=== PATIENT | female | born 1950 | race Caucasian/White ===

== ENCOUNTER 2018-07-28 13:20 | Inpatient (IN) | payer MEDICARE ==
[~2018-07-28] VITALS: Ht 149.9 cm; Wt 48.1 kg
--- NOTE | 2018-07-28 13:30 | NUR ---
FROM [facility] - ON HOLD 5150. PT WAS FROM HOME WAS COMBATIV DAUGHTER. NAD NOTED, VSS, RESP EVEN AND UNLABORED, PT WAS PUT ON MONITOR AND HOSPITAL MD RACHEL AT BS.
--- NOTE | 2018-07-28 14:45 | NUR ---
ADMISSION NOTES PATIENT DIRECT ADMIT BROUGHT BY AMBULANCE FROM [facility] FEMALE 68Y/OLD ON 5250 HOLD, ON Dx OF PSYCHOSIS NOS. PATIENT A/O X2/3, REFUSED ANSWER QUESTIONS, REFUSED SIGN PAPERWORK, REFUSED FACE PICTURE TO BE TAKEN. PATIENT STATE " I DO NOT KNOW WHY I AM HEAR, SOMEBODY COMING TO PICK ME UP". V/S TAKEN BP-135/86, P-89, R-18, T-98, O2-94 ROOM AIR. PATIENT HAS NO ACUTE RESPIRATORY DISTRESS, NO SOB. PATIENT AMBULATORY SELF CARE, USING BATHROOM. ON FACE TO FACE ASSESSMENT PATIENT PASSIVE, LOSS MEMORY. SKIN ASSESSMENT DONE, SKIN INTACT. BELONGING AND CONTRABAND CHECKED. MRSA OF SWAB NARES TAKEN CALLED LAB FOR [facility]. FAMILY AWARE OF ADMISSION. DR HELMS, AND DR. JIANG AWARE OF NEW ADMISSION, AND MEDICATION. CONTINUED MONITORING.
[2018-07-28] MEDS ORDERED: ACETAMINOPHEN 325 MG TABLET PO PRN (15:00)
[2018-07-28] MEDS ORDERED: LORAZEPAM 0.5 MG TABLET PO PRN (15:00)
[2018-07-28] MEDS ORDERED: MAGNESIUM HYDROXIDE 30 ML UDC PO PRN (15:00)
[2018-07-28] MEDS ORDERED: MAG HYDROX/AL HYDROX/SIMETH 30 ML UDC PO PRN (15:00)
[2018-07-28 15:52] VITALS: BP 135/86
[2018-07-28] MEDS ORDERED: ALBUTEROL FS 2.5 MG/0.5 ML VIAL.NEB NEB PRN (19:30)
[2018-07-28 19:40] VITALS: BP 148/90
--- NOTE | 2018-07-28 19:53 | NUR ---
GPS RN NOTE, PATIENT IS TAKING Q-BRIANNA AT HOME BUT OUR PHARMACY DOES NOT CARRY IT. DR MIHAELA JIANG ON STATION AT PATIENT BEDSIDE. INFORMED DR MIHAELA JIANG OF MY FINDINGS. DR MIHAELA JIANG ORDERED TO GIVE ADVAIR 250 / 50 1 PUFF PO BID. ALL ORDERS NOTED AND CARRIED OUT WILL CONTINUE TO MONITOR THIS PATIENT.
[2018-07-28 20:00] VITALS: BP 148/90
[2018-07-28] MEDS: FLUTICASONE/VILANTEROL 1 EACH BLST.W.DEV IH SCH (21:59)
[2018-07-29] MEDS ORDERED: LOSA25TA13 PO (07:36)
[2018-07-29 07:58] LABS: ALBUMIN 3.5 g/dL (3.4-5.0); BILIRUBIN,DIRECT 0.1 mg/dL (0.0-0.2); BILIRUBIN,TOTAL 0.7 mg/dL (0.2-1.0); TOTAL PROTEIN, SERUM 6.7 g/dL (6.4-8.2)
[2018-07-29 08:00] VITALS: BP 109/73
[2018-07-29 08:05] LABS: CREATININE 0.7 mg/dL (0.6-1.3); POTASSIUM 3.8 mmol/L (3.5-5.1)
[2018-07-29] MEDS: FLUTICASONE/VILANTEROL 1 EACH BLST.W.DEV IH SCH (09:00)
--- NOTE | 2018-07-29 12:41 | NUR ---
SW called the pt's daughter, Chetna ([phone]), and discussed the process of conservatorship and how that is not viable for this pt. Then it was discussed the pt would be referred to long-term facilities in the [facility].
--- NOTE | 2018-07-29 12:41 | NUR ---
Initial Discharge Plan: Pt currently resides at [address] [place], [place] [id number]. Per psychiatrists recommendation, the pt should be placed in a facility before going home. Per pt, she would like to return home. MIKY will work with the pt, the pt's family, and the MD regarding appropriate discharge planning. SW will form a safe and proper plan.
--- NOTE | 2018-07-29 12:53 | NUR ---
MIKY called the pt's son, Kolby ([phone]), and left a voicemail asking for a call back to discuss the discharge plan.
--- NOTE | 2018-07-29 13:55 | NUR ---
SW called the pt's daughter, Chetna ([phone]), and informed her about the 14 day hold and the options for discharge. SW informed the daughter that the pt is refusing placement and wants to go home. Daughter said that would only be acceptable if there is a environmental sciences professor at home as well. SW informed her that she would send out referrals for [facility] facilities just in case.
--- NOTE | 2018-07-29 13:58 | NUR ---
MIKY called the pt's son, Kolby ([phone]), and informed him that the pt can be discharged before the 14 day hold is complete and also informed him that the SW would inform him about discharge when she knows when it will be set for.
[2018-07-29 16:00] VITALS: BP 131/79
[2018-07-29 20:23] VITALS: BP 141/61
[2018-07-29] MEDS: ZOLPIDEM TARTRATE 5 MG TABLET PO PRN ×2 (20:41→21:39)
--- NOTE | 2018-07-29 20:41 | NUR ---
AMBIEN 5 MG TAB 1 PO GIVEN FOR SLEEP. Addendum: 07/30/18 at 0129 by MONIKA JORGE RN NOTE CHARTED ABOVE: USER ERROR. PATIENT REFUSED HER AMBIEN 5 MG TAB.
[2018-07-29] MEDS ORDERED: DEXTROSE 50%-WATER 50 ML DISP.SYRIN IV PRN (21:00)
[2018-07-29] MEDS: QUETIAPINE FUMARATE 25 MG TABLET PO SCH (21:37)
[2018-07-29] MEDS: ATORVASTATIN 10 MG TABLET PO SCH (21:37)
[2018-07-29] MEDS: BLOOD SUGAR DIAGNOSTIC 1 EACH STRIP IN SCH (21:37)
[2018-07-30] MEDS: BLOOD SUGAR DIAGNOSTIC 1 EACH STRIP IN SCH ×4 (07:44→21:38)
[2018-07-30 08:00] VITALS: BP 152/100
[2018-07-30 08:06] LABS: CALCIUM, SERUM 9.6 mg/dL (8.5-10.1); CREATININE 0.9 mg/dL (0.6-1.3); MAGNESIUM 2.5 mg/dL (1.8-2.4); PHOSPHORUS 3.9 mg/dL (2.5-4.9)
[2018-07-30 08:11] LABS: BASOPHILS # (AUTO) 0.1 /CMM (0.0-0.2); BASOPHILS % (AUTO) 1.4 % (0.0-2.0); EOSINOPHILS % (AUTO) 2.4 % (0.0-6.0); HEMATOCRIT 47 % (33-45); HEMOGLOBIN 15.7 g/dL (11.5-14.8); LYMPHOCYTES # (AUTO) 1.5 /CMM (0.8-4.8); LYMPHOCYTES % (AUTO) 20.8 % (20.0-44.0); MEAN CORPUSCULAR HGB CONC 33 g/dl (31.0-36.0); MEAN CORPUSCULAR VOLUME 92 fL (82-100); MONOCYTES # (AUTO) 0.6 /CMM (0.1-1.30); MONOCYTES % (AUTO) 7.6 % (2.0-12.0); NEUTROPHILS # (AUTO) 4.9 /CMM (1.8-8.9); NEUTROPHILS % (AUTO) 67.8 % (43.0-81.0); PLATELET COUNT (AUTO) 291 /CMM (150-450); RDW COEFFICIENT OF VARIATION 13.5 (11.5-15.0); RED BLOOD CELL COUNT(AUTO) 5.08 MIL/uL (4.0-5.2); WHITE BLOOD COUNT (AUTO) 7.3 K/uL (4.3-11.0)
[2018-07-30] MEDS: FLUTICASONE/VILANTEROL 1 EACH BLST.W.DEV IH SCH (09:00)
--- NOTE | 2018-07-30 15:14 | NUR ---
MIKY called the pt's daughter, Chetna ([phone]), and discussed what the plan would be if the pt decided to leave against medical advice.
--- NOTE | 2018-07-30 15:35 | NUR ---
Pt's daughter, Chetna ([phone]), called the SW and inquired about the durable power of employment law attorney process.
--- NOTE | 2018-07-30 15:35 | NUR ---
MIKY sent a referral to [facility] with attention to Kasia at the fax number: [phone].
[2018-07-30 16:00] VITALS: BP 139/89
[2018-07-30 19:52] VITALS: BP 134/79
--- NOTE | 2018-07-30 19:52 | NUR ---
GPS/RN NOTES RECEIVED PATIENT IN BED, AWAKE , RESTING COMFORTABLY IN BED, NO S/S OF COMPLAINS OF PAIN AT THIS TIME. WITH NO S/S OF BEHAVIOR OUTBURST OR DISTRESS, RESPIRATIONS EVEN AND UNLABORED, SKIM WARM TO TOUCH. PATIENT ABLE TO TAKE MEDS, NO SUICIDAL IDEALATIONS AT THIS TIME. PATIENT BELONGINGS WITHIN REACH AND EDUCATED TO USE CALL LIGHTS, PATIENT BED SIDE RAILS UP 2X FOR SAFETY, BED IS LOCKED AND WILL CONTINUE TO MONITOR.
[2018-07-30 20:00] VITALS: BP 134/79
[2018-07-30] MEDS: QUETIAPINE FUMARATE 25 MG TABLET PO SCH (21:38)
[2018-07-30] MEDS: ATORVASTATIN 10 MG TABLET PO SCH (21:38)
--- NOTE | 2018-07-30 22:00 | NUR ---
GPS/RN NOTES PATIENT ASLEEP AND REFUSE TO TAKE MEDS, OFFERED AND PROVIDE RISK AND BENEFITS.
[2018-07-31] MEDS: BLOOD SUGAR DIAGNOSTIC 1 EACH STRIP IN SCH ×4 (07:30→21:28)
[2018-07-31 08:00] VITALS: BP 116/71
[2018-07-31] MEDS: FLUTICASONE/VILANTEROL 1 EACH BLST.W.DEV IH SCH (08:58)
[2018-07-31] MEDS: QUETIAPINE FUMARATE 25 MG TABLET PO SCH ×2 (10:19→21:28)
--- NOTE | 2018-07-31 13:06 | NUR ---
MIKY called the pt's daughter, Chetna ([phone]), and discussed the pt's discharge for the following day and then discussed setting her up with home care.
--- NOTE | 2018-07-31 13:26 | NUR ---
Pt contacted Nimco ([phone]) from [facility] and provided her with the pt's daughters phone number to set up the home care.
[2018-07-31 16:00] VITALS: BP 140/83
[2018-07-31 20:00] VITALS: BP 133/66
[2018-07-31] MEDS: ATORVASTATIN 10 MG TABLET PO SCH (21:28)
--- NOTE | 2018-07-31 22:00 | NUR ---
GPS NOTES NON ADMIN PT LIPITOR, SEROQUEL AND BLOOD SUGAR TEST PER PT SHE IS NOT SICK AND SHE IS NOT DIABETIC OFFERED 3 TIMES RISKS AND BENEFITS EXPLAINED STILL REFUSED.
[2018-08-01 08:00] VITALS: BP 120/73
[2018-08-01] MEDS: FLUTICASONE/VILANTEROL 1 EACH BLST.W.DEV IH SCH (09:00)
[2018-08-01] MEDS: QUETIAPINE FUMARATE 25 MG TABLET PO SCH ×2 (09:00→21:08)
[2018-08-01] MEDS: BLOOD SUGAR DIAGNOSTIC 1 EACH STRIP IN SCH ×4 (09:03→21:06)
--- NOTE | 2018-08-01 09:06 | NUR ---
GPS/RN PT REFUSED AM MEDS OFFERED X3
--- NOTE | 2018-08-01 09:09 | NUR ---
MIKY called the pt's daughter, Chetna ([phone]), and informed her that the pt will not be discharging today because she is still refusing her medications and the psychiatrist had informed her that as long as she takes them she would be discharged.
--- NOTE | 2018-08-01 12:01 | NUR ---
GPS/RN PT REFUSED ACCUCHECK OFFERED X3
[2018-08-01 16:00] VITALS: BP 136/63
[2018-08-01 20:00] VITALS: BP 129/71
--- NOTE | 2018-08-01 21:06 | NUR ---
ACCUCHECK NOW = 179 MG/DL, REFUSED INSULIN COVERAGE. PATIENT STATED." I AM NOT ADMITTED, I CAN'T." OFFERED 2X, CONTINUED TO REFUSE INSULIN COVERAGE.
[2018-08-01] MEDS: ATORVASTATIN 10 MG TABLET PO SCH (21:08)
--- NOTE | 2018-08-01 21:09 | NUR ---
PATIENT REFUSED HER ATORVASTATIN AND QUETIAPINE MEDICATIONS DUE FOR 0. STATED," I AM NOT ADMITTED HERE." EXPLAINED BENEFITS X2, KEPT REFUSING HER NIGHT MEDICATIONS.
[2018-08-02 08:00] VITALS: BP 121/79
[2018-08-02] MEDS: BLOOD SUGAR DIAGNOSTIC 1 EACH STRIP IN SCH ×4 (08:06→21:24)
[2018-08-02] MEDS: INSULIN REGULAR, HUMAN 100 UNIT/ML 3 ML VIAL SQ PRN (08:10)
--- NOTE | 2018-08-02 08:16 | NUR ---
REFUSED INSULIN COVERAGE.
[2018-08-02] MEDS: QUETIAPINE FUMARATE 25 MG TABLET PO SCH ×3 (09:00→21:26)
[2018-08-02] MEDS: FLUTICASONE/VILANTEROL 1 EACH BLST.W.DEV IH SCH ×2 (09:00→09:08)
[2018-08-02 16:00] VITALS: BP 133/86
--- NOTE | 2018-08-02 18:48 | NUR ---
NOT TAKING MEDS TODAY OR ALLOWING ACCU-CHECK IN AFT. OR TESFAYE.
[2018-08-02 20:00] VITALS: BP 111/72
--- NOTE | 2018-08-02 21:25 | NUR ---
ACCUCHECK = 116 MG/DL, NO INSULIN DUE AT THIS TIME. OFFERED HS SNACKS.
[2018-08-02] MEDS: ATORVASTATIN 10 MG TABLET PO SCH (21:26)
--- NOTE | 2018-08-02 21:26 | NUR ---
REFUSED HER ROUTINE NIGHT MEDICATIONS, OFFERED HER MEDICATIONS TWICE, EXPLAINED BENEFITS, SHE STILL REFUSED TO TAKE THEM.
[2018-08-03] MEDS: BLOOD SUGAR DIAGNOSTIC 1 EACH STRIP IN SCH ×4 (07:30→22:00)
[2018-08-03 08:00] VITALS: BP 134/64
[2018-08-03] MEDS: FLUTICASONE/VILANTEROL 1 EACH BLST.W.DEV IH SCH (09:00)
[2018-08-03] MEDS: QUETIAPINE FUMARATE 25 MG TABLET PO SCH ×2 (09:00→22:00)
--- NOTE | 2018-08-03 09:35 | NUR ---
GPS/RN PT REFUSED ACCUCHECK OFFERED X3 REFUSED AM MEDS WELL
--- NOTE | 2018-08-03 12:00 | NUR ---
GPS/RN PT REFUSED ACCUCHECK OFFERED X3
[2018-08-03 16:00] VITALS: BP 160/90
[2018-08-03 20:25] VITALS: BP 127/75
[2018-08-03] MEDS: ATORVASTATIN 10 MG TABLET PO SCH (22:00)
--- NOTE | 2018-08-03 22:20 | NUR ---
PT REFUSED MEDS & ACCU CHECK AT 2200 OFFERED MEDS TO THE PATIENT BUT SHE REFUSED SAYING THAT SHE IS OK & DOES NOT NEED PILLS. PT ALSO REFUSED ACCU CHECK AT 2200 DESPITE OF EXPLAINING RISKS & BENEFITS BUT PT CONTINUED REFUSING. WILL MONITOR CLOSELY.
[2018-08-04] MEDS: BLOOD SUGAR DIAGNOSTIC 1 EACH STRIP IN SCH ×4 (07:30→21:06)
[2018-08-04 08:00] VITALS: BP 130/82
[2018-08-04] MEDS: QUETIAPINE FUMARATE 25 MG TABLET PO SCH ×2 (09:00→21:07)
[2018-08-04] MEDS: FLUTICASONE/VILANTEROL 1 EACH BLST.W.DEV IH SCH (09:00)
--- NOTE | 2018-08-04 11:30 | NUR ---
MIKY met with the pt's son, Kolby ([phone]), and informed him that the psychiatrist decided not to discharge the pt today due to the fact that she is not taking her medications. MIKY informed him that the plan is to reise the pt so that the medications can take effect.
[2018-08-04 16:00] VITALS: BP 121/70
--- NOTE | 2018-08-04 17:59 | NUR ---
GPS/RN PATIENT ADAMANTLY REFUSED ALL MEDICATIONS THROUGHOUT SHIFT, ENCOURAGED AND EXPLAINED RISKS AND BENEFITS, CONTINUED TO REFUSE. WILL CONTINUE TO ENCOURAGE TO COMPLY WITH MD REGIMEN.
--- NOTE | 2018-08-04 18:00 | NUR ---
GPS/RN PATIENT ADAMANTLY REFUSED ALL BS CHECKS DURING SHIFT.EXPLAINED RISKS AND BENEFITS , WILL CONTINUE TO ENCOURAGE TO COMPLY WITH MD REGIMEN. PEGGY GRIMALDO AWARE.
[2018-08-04 20:50] VITALS: BP 150/56
[2018-08-04] MEDS: ATORVASTATIN 10 MG TABLET PO SCH (21:06)
--- NOTE | 2018-08-04 21:08 | NUR ---
patient refused Accu check and all night medication explain x 3 patient benefit but patient still refused stated "I don,t need any medications. by mistake they keep me here."
[2018-08-05] MEDS: BLOOD SUGAR DIAGNOSTIC 1 EACH STRIP IN SCH ×4 (07:30→22:23)
[2018-08-05 08:00] VITALS: BP 117/67
[2018-08-05] MEDS: QUETIAPINE FUMARATE 25 MG TABLET PO SCH ×2 (09:00→21:31)
[2018-08-05] MEDS: FLUTICASONE/VILANTEROL 1 EACH BLST.W.DEV IH SCH (09:00)
[2018-08-05 16:00] VITALS: BP 122/76
[2018-08-05 20:34] VITALS: BP 143/80
[2018-08-05] MEDS: ATORVASTATIN 10 MG TABLET PO SCH (21:31)
[2018-08-05] MEDS: INSULIN REGULAR, HUMAN 100 UNIT/ML 3 ML VIAL SQ PRN (22:24)
[2018-08-05 23:00] VITALS: BP 126/70
--- NOTE | 2018-08-06 00:53 | NUR ---
GPS RN NOTES patient all night medication explain x 3 patient benefit but patient still refused stated "I don,t want any medication. by mistake they keep me here."pt. allowed to check blood sugar but refused coverage , explained risks and benefits and pt. still refused .
[2018-08-06] MEDS: BLOOD SUGAR DIAGNOSTIC 1 EACH STRIP IN SCH ×4 (07:30→21:49)
[2018-08-06 08:00] VITALS: BP 119/64
[2018-08-06] MEDS: FLUTICASONE/VILANTEROL 1 EACH BLST.W.DEV IH SCH (08:16)
[2018-08-06] MEDS: QUETIAPINE FUMARATE 25 MG TABLET PO SCH ×2 (08:16→21:22)
[2018-08-06 17:05] VITALS: BP 135/60
[2018-08-06 20:03] VITALS: BP 137/68
[2018-08-06] MEDS: ATORVASTATIN 10 MG TABLET PO SCH (21:22)
--- NOTE | 2018-08-06 21:50 | NUR ---
GPS RN NOTES patient Refused all night medication explain x 3 patient benefit but patient still refused stated "I don,t want any medication." and pt. refused to check blood sugar , explained risks and benefits and pt. still refused .
[2018-08-07] MEDS: BLOOD SUGAR DIAGNOSTIC 1 EACH STRIP IN SCH ×4 (07:30→22:00)
[2018-08-07 08:00] VITALS: BP 122/68
[2018-08-07] MEDS: QUETIAPINE FUMARATE 25 MG TABLET PO SCH ×2 (09:00→22:00)
[2018-08-07] MEDS: FLUTICASONE/VILANTEROL 1 EACH BLST.W.DEV IH SCH (09:00)
[2018-08-07] MEDS: LOSARTAN POTASSIUM 25 MG TABLET PO SCH (09:00)
--- NOTE | 2018-08-07 11:37 | NUR ---
MIKY spoke to the pt's son, Kolby ([phone]), and informed him that a riese was filed and now we are just waiting for the riese hearing to be scheduled. She also informed the pt's son, that once a 14 day hold is complete, a psychiatrist can determine whether or not the hold needs to be extended.
[2018-08-07 16:00] VITALS: BP 121/71
--- NOTE | 2018-08-07 20:00 | NUR ---
GPS/NURSE MIDWIFE/CLINICAL INSTRUCTOR NOTES: PT. REFUSED HS VITAL SIGNS. OFFERED 3X. EXPLAINED RISK AND BENEFITS. PT. STILL REFUSED.
[2018-08-07] MEDS: ATORVASTATIN 10 MG TABLET PO SCH (22:00)
--- NOTE | 2018-08-07 22:18 | NUR ---
GPS/WRAPPER HANDS SPRAYER NOTES: PT. REFUSED HS MEDS. OFFERED 3X. EXPLAINED RISK AND BENEFITS. PT. STILL REFUSED. PT. ON RIESED. IM HALDOL 2MG GIVEN ORDERED. WILL CONTINUE TO MONITOR.
[2018-08-07] MEDS: HALOPERIDOL LACTATE INJ 5 MG/ML VIAL IM PRN (22:21)
[2018-08-08] MEDS: BLOOD SUGAR DIAGNOSTIC 1 EACH STRIP IN SCH ×4 (07:30→21:32)
[2018-08-08 08:00] VITALS: BP 130/76
[2018-08-08] MEDS: FLUTICASONE/VILANTEROL 1 EACH BLST.W.DEV IH SCH (08:55)
[2018-08-08] MEDS: LOSARTAN POTASSIUM 25 MG TABLET PO SCH (08:55)
[2018-08-08] MEDS: QUETIAPINE FUMARATE 25 MG TABLET PO SCH ×2 (08:55→21:34)
[2018-08-08] MEDS: HALOPERIDOL LACTATE INJ 5 MG/ML VIAL IM PRN (08:56)
--- NOTE | 2018-08-08 09:31 | NUR ---
MIKY called the pt's son, Kolby ([phone]), and informed him about the results of the Riese hearing that took place yesterday.
--- NOTE | 2018-08-08 09:38 | NUR ---
MIKY called the pt's daughter, Chetna ([phone]), and informed her that the pt's riese hearing took place yesterday and that the results were that she is now riesed. MIKY informed the pt's daughter that she would give her a call back later in the day when Dr. Vang decides on a discharge date.
[2018-08-08 16:00] VITALS: BP 127/75
[2018-08-08] MEDS ORDERED: OLANZAPINE 10 MG VIAL IM SCH (17:00)
[2018-08-08 20:00] VITALS: BP 146/73
[2018-08-08] MEDS: ATORVASTATIN 10 MG TABLET PO SCH (21:33)
[2018-08-08] MEDS: INSULIN REGULAR, HUMAN 100 UNIT/ML 3 ML VIAL SQ PRN (21:33)
[2018-08-08] MEDS: OLANZAPINE 10 MG VIAL IM PRN (21:34)
--- NOTE | 2018-08-08 21:35 | NUR ---
PT. REFUSED SCHEDULED MEDS. OFFERED 3X. EXPLAINED RISK AND BENEFITS. PT STILL REFUSED. IM HALDOL 2MG GIVEN ORDERED. WILL CONTINUE TO MONITOR. Addendum: 08/09/18 at 2326 by LASHELL AMAYA RN [id number] 2.5MG GIVEN ORDERED.
[2018-08-09] MEDS: BLOOD SUGAR DIAGNOSTIC 1 EACH STRIP IN SCH ×4 (07:30→21:39)
[2018-08-09 08:00] VITALS: BP 129/62
[2018-08-09] MEDS: FLUTICASONE/VILANTEROL 1 EACH BLST.W.DEV IH SCH (08:48)
[2018-08-09] MEDS: LOSARTAN POTASSIUM 25 MG TABLET PO SCH (08:48)
[2018-08-09] MEDS: QUETIAPINE FUMARATE 25 MG TABLET PO SCH ×2 (08:49→22:00)
[2018-08-09] MEDS: OLANZAPINE 10 MG VIAL IM PRN ×2 (09:01→21:37)
[2018-08-09 16:05] VITALS: BP 153/75
[2018-08-09 20:00] VITALS: BP 123/74
[2018-08-09] MEDS: INSULIN REGULAR, HUMAN 100 UNIT/ML 3 ML VIAL SQ PRN (21:40)
--- NOTE | 2018-08-09 21:50 | NUR ---
5250 HOLD (14 DAY HOLD) UPHELD TO 5270 HOLD (30 DAYS HOLD) 09/08/18. COPY PROVIDED TO THE PATIENT.
[2018-08-09] MEDS: ATORVASTATIN 10 MG TABLET PO SCH (22:00)
[2018-08-10] MEDS ORDERED: MAGNESIUM HYDROXIDE 30 ML UDC PO PRN
[2018-08-10] MEDS ORDERED: MAG HYDROX/AL HYDROX/SIMETH 30 ML UDC PO PRN
[2018-08-10] MEDS ORDERED: ACETAMINOPHEN 325 MG TABLET PO PRN
[2018-08-10] MEDS: BLOOD SUGAR DIAGNOSTIC 1 EACH STRIP IN SCH ×4 (07:30→21:36)
[2018-08-10 07:34] LABS: CHOLESTEROL 154 mg/dL (<200); HDL CHOLESTEROL 40 mg/dL (40-60); LDL 95 mg/dL (0-99); TRIGLYCERIDES 238 mg/dL (30-150)
[2018-08-10 07:37] LABS: ALBUMIN 3.5 g/dL (3.4-5.0); BILIRUBIN,TOTAL 0.6 mg/dL (0.2-1.0); CALCIUM, SERUM 9.1 mg/dL (8.5-10.1); CREATININE 0.9 mg/dL (0.6-1.3); POTASSIUM 4.3 mmol/L (3.5-5.1); TOTAL PROTEIN, SERUM 6.9 g/dL (6.4-8.2)
[2018-08-10 08:00] VITALS: BP 133/96
[2018-08-10] MEDS: FLUTICASONE/VILANTEROL 1 EACH BLST.W.DEV IH SCH (08:41)
[2018-08-10] MEDS: LOSARTAN POTASSIUM 25 MG TABLET PO SCH (08:41)
[2018-08-10] MEDS: QUETIAPINE FUMARATE 25 MG TABLET PO SCH ×2 (08:41→21:37)
[2018-08-10 16:00] VITALS: BP 135/71
[2018-08-10 20:11] VITALS: BP 142/77
[2018-08-10] MEDS: ATORVASTATIN 10 MG TABLET PO SCH (21:36)
[2018-08-11] MEDS: BLOOD SUGAR DIAGNOSTIC 1 EACH STRIP IN SCH ×4 (07:30→21:17)
[2018-08-11 08:00] VITALS: BP 120/85
--- NOTE | 2018-08-11 08:30 | NUR ---
SW called the pt's daughter, Chetna ([phone]), and informed her that the pt is being discharged today and discussed who would be available to pick her up. The pt's daughter stated that she would call the SW back when she discusses it with her brother.
--- NOTE | 2018-08-11 08:30 | NUR ---
MIKY called the pt's son, Kolby ([phone]), and left a voicemail stating that the pt is being discharged today.
[2018-08-11] MEDS: LOSARTAN POTASSIUM 25 MG TABLET PO SCH (08:40)
[2018-08-11] MEDS: FLUTICASONE/VILANTEROL 1 EACH BLST.W.DEV IH SCH (08:40)
[2018-08-11] MEDS: QUETIAPINE FUMARATE 25 MG TABLET PO SCH ×2 (08:40→21:21)
--- NOTE | 2018-08-11 09:39 | NUR ---
MIKY called the pt's daughter, Chetna ([phone]), and informed her that the pt is not being discharged today because Dr. Vang extended the hold and filed for a second riese.
[2018-08-11 16:00] VITALS: BP 135/86
[2018-08-11 20:28] VITALS: BP 124/72
--- NOTE | 2018-08-11 21:18 | NUR ---
PATIENT REFUSED ACCUCHECKS, ATTEMPTED 2X, EXPLAINED BENEFITS, AND STILL REFUSED. PATIENT STATED, " I'M FINE, I AM LEAVING TOMORROW."
[2018-08-11] MEDS: ATORVASTATIN 10 MG TABLET PO SCH (21:21)
--- NOTE | 2018-08-11 21:22 | NUR ---
PATIENT REFUSED HER ROUTINE NIGHT MEDICATIONS, PO. EXPLAINED X2, STILL REFUSED. SHE STATED," I AM FINE, I'M LEAVING TOMORROW."
[2018-08-12] MEDS: BLOOD SUGAR DIAGNOSTIC 1 EACH STRIP IN SCH ×4 (07:30→21:40)
[2018-08-12 08:00] VITALS: BP 129/85
[2018-08-12] MEDS: QUETIAPINE FUMARATE 25 MG TABLET PO SCH ×2 (09:00→21:41)
[2018-08-12] MEDS: LOSARTAN POTASSIUM 25 MG TABLET PO SCH (09:00)
[2018-08-12] MEDS: FLUTICASONE/VILANTEROL 1 EACH BLST.W.DEV IH SCH (09:00)
[2018-08-12 16:00] VITALS: BP 125/82
[2018-08-12 20:36] VITALS: BP 143/81
[2018-08-12] MEDS: ATORVASTATIN 10 MG TABLET PO SCH (21:41)
--- NOTE | 2018-08-12 21:41 | NUR ---
GPS-RN PATIENT REFUSED HER ROUTINE NIGHT MEDICATIONS, PO. EDUCATION GIVEN. PT. STILL REFUSED. SHE STATED," I'M LEAVING TOMORROW."
[2018-08-13] MEDS: BLOOD SUGAR DIAGNOSTIC 1 EACH STRIP IN SCH ×4 (07:30→21:46)
[2018-08-13 08:00] VITALS: BP 142/77
[2018-08-13] MEDS: LOSARTAN POTASSIUM 25 MG TABLET PO SCH (09:00)
[2018-08-13] MEDS: QUETIAPINE FUMARATE 25 MG TABLET PO SCH ×2 (09:00→21:46)
[2018-08-13] MEDS: FLUTICASONE/VILANTEROL 1 EACH BLST.W.DEV IH SCH (09:00)
--- NOTE | 2018-08-13 09:40 | NUR ---
GPS/RN-NOTES PATIENT REFUSED ACCU-CHECK AND ALL P.O MEDICATIONS DESPITE EXPLANATIONS RISK AND BENEFITS. STATED" I'M NOT TAKING ANY MEDICATIONS THE DOCTOR KNOWS IT". OFFERED X3.
--- NOTE | 2018-08-13 11:52 | NUR ---
Kolby ([phone]), called the SW and asked when the hearing will take place and for an update after.
--- NOTE | 2018-08-13 12:09 | NUR ---
MIKY called the pt's son, Kolby ([phone]), and informed him that the pt's hearing was rescheduled for tomorrow due to the psychiatrist having a medical emergency.
[2018-08-13 16:00] VITALS: BP 146/76
[2018-08-13 20:08] VITALS: BP 124/97
[2018-08-13] MEDS: ATORVASTATIN 10 MG TABLET PO SCH (21:46)
--- NOTE | 2018-08-13 21:46 | NUR ---
GPS-RN PATIENT REFUSED HER ROUTINE NIGHT MEDICATIONS, PO. EDUCATION GIVEN. PATIENT STILL REFUSED. PATIENT STATED " I AM FINE".
[2018-08-14] MEDS: BLOOD SUGAR DIAGNOSTIC 1 EACH STRIP IN SCH ×4 (07:30→21:26)
[2018-08-14 08:00] VITALS: BP 122/76
[2018-08-14] MEDS: FLUTICASONE/VILANTEROL 1 EACH BLST.W.DEV IH SCH (09:00)
[2018-08-14] MEDS: QUETIAPINE FUMARATE 25 MG TABLET PO SCH ×3 (09:00→18:12)
[2018-08-14] MEDS: LOSARTAN POTASSIUM 25 MG TABLET PO SCH (09:00)
--- NOTE | 2018-08-14 09:30 | NUR ---
GPS/RN-NOTES PATIENT REFUSED ACCU-CHECK AND ALL P.O MEDICATIONS DESPITE EXPLANATIONS RISK AND BENEFITS. OFFERED X3.
[2018-08-14] MEDS: HALOPERIDOL LACTATE INJ 5 MG/ML VIAL IM SCH ×3 (14:00→18:03)
--- NOTE | 2018-08-14 14:25 | NUR ---
GPS/RN-NOTES T.O ORDER FROM DR. CUMMINGS TO START THE HALDOL IM IF PATIENT REFUSED 1700 SEROQUEL.
--- NOTE | 2018-08-14 14:33 | NUR ---
MIKY called the pt's son, Kolby ([phone]), and informed him that the riese hearing occurred earlier in that day and the pt is riesed once again. MIKY also informed him that there is a tentative discharge date for Saturday.
[2018-08-14 16:00] VITALS: BP 138/95
--- NOTE | 2018-08-14 18:13 | NUR ---
GPS/RN-NOTES AT FIRST PATIENT REFUSED SEROQUEL 25MG P.O . ABOUT TO GIVE THE HALDOL 0.2ML IM ORDERED BUT PATIENT CHANGE HER MIND AND TOOK SEROQUEL 25MG P.O.
[2018-08-14 20:10] VITALS: BP 135/62
[2018-08-14] MEDS: ATORVASTATIN 10 MG TABLET PO SCH (21:26)
[2018-08-14] MEDS: INSULIN REGULAR, HUMAN 100 UNIT/ML 3 ML VIAL SQ PRN (21:27)
--- NOTE | 2018-08-14 21:30 | NUR ---
GPS/RN PATIENT REFUSE SCHEDULED MEDS. OFFER 3X. ENCOURAGED AND EXPLAINED RISKS AND BENEFITS. PATIENT STILL REFUSED. WILL CONTINUE TO ENCOURAGE TO COMPLY WITH MD REGIMEN.
[2018-08-15] MEDS: BLOOD SUGAR DIAGNOSTIC 1 EACH STRIP IN SCH ×4 (07:30→21:50)
[2018-08-15 08:00] VITALS: BP 113/70
[2018-08-15] MEDS: FLUTICASONE/VILANTEROL 1 EACH BLST.W.DEV IH SCH (09:00)
[2018-08-15] MEDS: QUETIAPINE FUMARATE 25 MG TABLET PO SCH ×2 (09:00→18:00)
[2018-08-15] MEDS: LOSARTAN POTASSIUM 25 MG TABLET PO SCH (09:00)
[2018-08-15] MEDS: HALOPERIDOL LACTATE INJ 5 MG/ML VIAL IM SCH ×2 (09:16→18:02)
--- NOTE | 2018-08-15 09:30 | NUR ---
GPS/RN-NOTES PATIENT REFUSED ALL P.O MEDICATIONS INCLUDING SEROQUEL 25MG P.O. HALDOL 0.2ML GIVEN ORDERED.GIVEN AT THE LEFT ARM.
[2018-08-15 16:00] VITALS: BP 140/86
--- NOTE | 2018-08-15 18:10 | NUR ---
GPS/RN-NOTES PATIENT REFUSED 1700 SEROQUEL 25MG P.O. EXPLAINED THAT FOR EVERY REFUSAL OF SEROQUEL , HALDOL 0.2ML WILL BE GIVEN. PATIENT STATED" ALL MY MEDICATIONS WAS DISCONTINUED BY THE DOCTOR,I WILL GET MY FURNACE HAND TO GET YOU". CURRICULUM AND ASSESSMENT DIRECTOR ENCOURAGE THE PATIENT TO COME TO HER ROOM FOR THE IM MEDICATION BUT PATIENT WAS RESISTIVE. PATIENT WAS TAKEN INTO HER ROOM BY TWO MORE STAFF ASSIST. HALDOL 0.2ML GIVEN AT RIGHT BUTTOCK.
[2018-08-15 20:00] VITALS: BP 140/77
[2018-08-15] MEDS: ATORVASTATIN 10 MG TABLET PO SCH (21:50)
--- NOTE | 2018-08-15 21:50 | NUR ---
GPS RN NOTE: PATIENT REFUSED PM MEDICATIONS AND ACCUCHECK, EXPLAINED THE RISK AND BENEFITS X 3 ATTEMPTS, PATIENT STILL REFUSED, NO S/S OF HYPOGLYCEMIA/HYPERGLYCEMIA, WILL CONTINUE TO MONITOR [id number] FOR SAFETY
[2018-08-16] MEDS: BLOOD SUGAR DIAGNOSTIC 1 EACH STRIP IN SCH ×4 (07:30→22:08)
[2018-08-16 08:00] VITALS: BP 132/78
[2018-08-16] MEDS: QUETIAPINE FUMARATE 25 MG TABLET PO SCH ×2 (08:43→17:03)
[2018-08-16] MEDS: FLUTICASONE/VILANTEROL 1 EACH BLST.W.DEV IH SCH (08:43)
[2018-08-16] MEDS: LOSARTAN POTASSIUM 25 MG TABLET PO SCH (08:43)
[2018-08-16] MEDS: HALOPERIDOL LACTATE INJ 5 MG/ML VIAL IM SCH ×2 (08:44→17:00)
[2018-08-16 16:00] VITALS: BP 131/62
--- NOTE | 2018-08-16 17:04 | NUR ---
GPS/RN PT AGREED TO TAKE SEROQUEL PO. NO HALDOL IM GIVEN . PT STILL REFUSING ACCUCHECKS.
[2018-08-16 20:00] VITALS: BP 135/62
[2018-08-16] MEDS: ATORVASTATIN 10 MG TABLET PO SCH (22:00)
[2018-08-17] MEDS: BLOOD SUGAR DIAGNOSTIC 1 EACH STRIP IN SCH ×4 (07:30→22:42)
[2018-08-17 08:00] VITALS: BP 136/64
[2018-08-17] MEDS: LOSARTAN POTASSIUM 25 MG TABLET PO SCH (08:55)
[2018-08-17] MEDS: FLUTICASONE/VILANTEROL 1 EACH BLST.W.DEV IH SCH (08:55)
[2018-08-17] MEDS: QUETIAPINE FUMARATE 25 MG TABLET PO SCH ×2 (09:00→17:24)
[2018-08-17] MEDS: HALOPERIDOL LACTATE INJ 5 MG/ML VIAL IM SCH ×2 (09:00→17:00)
--- NOTE | 2018-08-17 09:15 | NUR ---
GPS/RN PT AGREED TO TAKE SEROQUEL PO. NO HALDOL IM GIVEN . PT REFUSED ACCUCHECK.
[2018-08-17 16:00] VITALS: BP 105/51
--- NOTE | 2018-08-17 19:30 | NUR ---
GPS RN NOTE, RECEIVED PATIENT AWAKE AND IN BED, NO S/S OR COMPLAINTS OF PAIN AT THIS TIME. PATIENT IS DISPLAYING NO S/S OF APPARENT DISTRESS AT THIS TIME. PATIENT BREATHING IS UNLABORED WITH EQUAL RISE AND FALL OF THE CHEST. PATIENT IS ALERT AND ORIENTED X 3 ON ROOM AIR WITH A SPO2 OF 96%. PATIENT IS MED SELECTIVE, DISORGANIZED, CALM, COOPERATIVE, AND NEEDS REDIRECTION. PATIENT DENIES SUICIDE IDEATIONS AND HOMICIDAL IDEATIONS AT THIS TIME. PATIENT ASSISTED WITH TURNING AND REPOSITIONING Q 2HRS AND PRN FOR COMFORT AND CIRCULATION. PATIENT HAS NO NEEDS AT THIS TIME. PATIENT EDUCATED ON THE USE OF THE CALL ASCENCIO. PATIENT BED SIDE RAILS UP X 2 FOR SAFETY, BED IS LOCKED, LOW, AND I WILL CONTINUE TO MONITOR AND MAINTAIN SAFETY Q15 MIN WITH THE HELP OF STAFF.
[2018-08-17 20:00] VITALS: BP 120/66
[2018-08-17] MEDS: ATORVASTATIN 10 MG TABLET PO SCH (21:50)
--- NOTE | 2018-08-17 21:50 | NUR ---
GPS RN NOTE, PATIENT REFUSED TO TAKE LIPITOR 20 MG PO HS . OFFERED AFOREMENTIONED MEDICATION THREE TIMES AND STILL PATIENT REFUSED STATING, " I DON'T WANT ANYTHING TONIGHT ". EDUCATED THE PATIENT ON THE RISKS AND BENEFITS OF TAKING AND REFUSING LIPITOR. WILL CONTINUE TO MONITOR THIS PATIENT.
--- NOTE | 2018-08-17 22:40 | NUR ---
GPS RN NOTE, PERFORMED ACCU-CHECK ON PATIENT WITH A BLOOD SUGAR RESULT OF 110. NO INSULIN GIVEN PER SLIDING SCALE. WILL CONTINUE TO MONITOR THIS PATIENT.
[2018-08-18] MEDS: BLOOD SUGAR DIAGNOSTIC 1 EACH STRIP IN SCH ×3 (08:24→16:47)
--- NOTE | 2018-08-18 08:43 | NUR ---
MIKY called the pt's son, Kolby ([phone]), and he stated that he can lemon picker the pt around 12pm.
[2018-08-18 09:39] VITALS: BP 115/70
[2018-08-18] MEDS: LOSARTAN POTASSIUM 25 MG TABLET PO SCH (10:01)
[2018-08-18] MEDS: QUETIAPINE FUMARATE 25 MG TABLET PO SCH ×2 (10:01→16:51)
[2018-08-18] MEDS: HALOPERIDOL LACTATE INJ 5 MG/ML VIAL IM SCH ×2 (10:02→17:00)
--- NOTE | 2018-08-18 10:48 | NUR ---
MIKY called the pt's son, Kolby ([phone]), and informed him that Dr. Vang wants to reevaluate the pt before discharging her today. MIKY informed him that the discharge is pending but she will call back later in the day to confirm it.
[2018-08-18] MEDS: FLUTICASONE/VILANTEROL 1 EACH BLST.W.DEV IH SCH (11:14)
--- NOTE | 2018-08-18 14:16 | NUR ---
MIKY called the pt's son, Kolby ([phone]), and informed him that the pt was cleared for discharge by Dr. Vang and he stated that he can arrive around 5pm.
--- NOTE | 2018-08-18 16:23 | NUR ---
MIKY called the pt's daughter, Chetna ([phone]), and informed her that the pt is being discharged and will be picked up by her brother today.
--- NOTE | 2018-08-18 16:25 | NUR ---
Discharge Note: Pt is being discharged home to [facility] [address]. Pt will be picked up by her son, Kobly ([phone]) at around 5pm and will be living with him and her . Upon discharge, the pt appeared to be in a euthymic mood and presented with a calm affect. Pt denied both suicidal and homicidal ideation as well as auditory and visual hallucinations. The pt was referred to both a psychiatrist and an hide measuring machine operator as well. Pt was referred to Dr. Morales located at [address] [place] [id number]; ([phone]) and was referred to Dr. Coles located at [address] [place] [id number]; ([phone]; fax number: [phone]). The referral was sent to both referrals.
[2018-08-18 16:54] VITALS: BP 118/65
--- NOTE | 2018-08-18 17:55 | NUR ---
DISCHARGE NOTES PATIENT D/C AT THIS TIME GOING HOME. PATIENT STABLE , MED COMPLIANT, V/S STABLE. NO COMPLAINING OF PAIN AT THIS TIME. PATIENT REFUSED SI/HI/AVH AT THIS TIME OF DISCHARGE. MED RECONCILIATION AND DISCHARGE ORDER REVIEWED AND EXPLAINED TO PATIENT, AND SON. SON VERBALIZED UNDERSTANDING. BELONGING RETURNED BACK TO THE PATIENT. PATIENT WILL FOLLOW PRIMARY COURT SUPERVISOR, AND PSYCHIATRIST. PATIENT INTELLIGENCE DIRECTOR BY SON NAME ANDERS PHONE # [phone].
== END 2018-08-18 17:55 | disposition home or self-care (01) | DRG 885 ==
LOC: ER 13:23 → GPS 14:34
PROVIDERS: ADMIT Psychiatry & Neurology Psychiatry; ATTEND Psychiatry & Neurology Psychiatry
DX: F29 Unspecified psychosis not due to a substance or known physiological condition (principal); E11.65 Type 2 diabetes mellitus with hyperglycemia; I10 Essential (primary) hypertension; J45.909 Unspecified asthma, uncomplicated; E78.5 Hyperlipidemia, unspecified; E87.6 Hypokalemia; F03.90 Unspecified dementia, unspecified severity, without behavioral disturbance, psychotic disturbance, mood disturbance, and anxiety; Z91.14 Patient's other noncompliance with medication regimen
CPT/HCPCS: 36415; 80048-TC; 80053-TC; 80061-TC; 80076-TC; 82962-TC; 83735-TC; 84100-TC; 84443-TC; 85025-TC; 87081-TC; A4606; J1630; J1815; J3490; Z7610